=== PATIENT | male | born 1955 | race Caucasian/White ===

== ENCOUNTER 2017-09-02 19:43 | Emergency (ER) | payer MEDICAID ==
[~2017-09-02] VITALS: Ht 167.6 cm; Wt 78.0 kg
[~2017-09-02 19:43] MED LIST: PRED20 PO; VITAD400 PO
[2017-09-02 21:17] LABS: BASOPHILS % (AUTO) 0.4 % (0.0-2.0); EOSINOPHILS % (AUTO) 0.6 % (1.0-6.0); HEMATOCRIT 45.8 % (41-53); HEMOGLOBIN 15.7 g/dL (13.5-17.5); LYMPHOCYTES # (AUTO) 1.4 K/uL (1.0-4.8); LYMPHOCYTES % (AUTO) 12.8 % (22.0-44.0); MEAN CORPUSCULAR HEMOGLOBIN 29.1 pg (26.0-34.0); MEAN CORPUSCULAR HGB CONC 34.3 G/dL (31.0-37.0); MEAN CORPUSCULAR VOLUME 85 fL (80-100); MONOCYTES # (AUTO) 0.6 K/uL (0.1-1.0); NEUTROPHILS # (AUTO) 9.1 K/uL (1.8-7.7); NEUTROPHILS % (AUTO) 81.2 % (40.0-70.0); PLATELET COUNT (AUTO) 228 K/uL (150-450); WHITE BLOOD COUNT (AUTO) 11.2 K/uL (4.5-11.0)
[2017-09-02] MEDS ORDERED: MORPHINE SULFATE 4 MG/ML SYRINGE IVP ONE (21:30)
[2017-09-02] MEDS ORDERED: ONDANSETRON HCL 4 MG/2 ML VIAL IVP ONE (21:30)
[2017-09-02 21:31] LABS: ANION GAP 6 mmol/L (8-16); CALCIUM, TOTAL 9.2 mg/dL (8.8-10.5); CARBON DIOXIDE 29 mmol/L (22-29); CHLORIDE 100 mmol/L (98-107); CREATININE 0.86 mg/dL (0.60-1.30); GLOMERULAR FILTR. RATE CALC > 60 mL/min (>60); SODIUM SERUM 135 mmol/L (136-145); UREA NITROGEN, BLOOD 28 mg/dL (7-18)
[2017-09-02 21:37] LABS: ALANINE AMINOTRANSFERASE 70 U/L (12-78); ALBUMIN 3.8 g/dL (3.4-5.0); ASPARTATE AMINOTRANSFERASE 34 U/L (15-37); BILIRUBIN,TOTAL 0.4 mg/dL (0.1-1.0); TOTAL PROTEIN, SERUM 7.5 g/dL (6.4-8.2)
[2017-09-03 00:27] LABS: APPEARANCE,URINE CLEAR (CLEAR); GLUCOSE, URINE (UA) 100 mg/dL (NEGATIVE); KETONES,URINE NEGATIVE (NEGATIVE); LEUKOCYTE ESTERASE ,URINE SMALL (NEGATIVE); OCCULT BLOOD,URINE NEGATIVE (NEGATIVE); PROTEIN,URINE TRACE (NEGATIVE)
[2017-09-03 00:50] LABS: ADD UA MICROSCOPIC YES
[2017-09-03 01:03] LABS: RBC,URINE 0-2 /HPF (0-2); SQUAMOUS EPITHELIAL CELL,UR Few /LPF (None Seen)
[2017-09-03 03:32] VITALS: BP 139/78
== END 2017-09-03 03:55 | disposition home or self-care (01) ==
LOC: EMS 19:49
DX: R10.13 Epigastric pain (principal)
CPT/HCPCS: 36415; 76700; 80053; 81001; 83690; 84484; 85025; 87077; 87086; 87186; 93005; 96374; 96375; 99285; J2270; J2405

== ENCOUNTER 2021-01-31 16:01 | Emergency (ER) | payer MEDICAID, OTHER ==
[~2021-01-31] VITALS: Ht 165.1 cm; Wt 75.0 kg
[2021-01-31 16:50] VITALS: BP 145/90
[2021-01-31] MEDS ORDERED: HYDROCODONE/ACETAMINOPHEN 5-325 MG TABLET PO ONE (17:15)
== END 2021-01-31 17:33 | disposition home or self-care (01) ==
LOC: EMS 16:14
DX: M54.31 Sciatica, right side (principal)
CPT/HCPCS: 82962; 99283

== ENCOUNTER 2023-04-04 13:12 | Emergency (ER) | payer MEDICARE, OTHER ==
[~2023-04-04] VITALS: Ht 160 cm; Wt 75.5 kg
[2023-04-04 13:22] VITALS: TEMP 98
[2023-04-04] MEDS ORDERED: IBUPROFEN 600 MG TABLET PO ONE (16:45)
[2023-04-04 18:40] VITALS: BP 124/65; PULSE 92; RESP 16
== END 2023-04-04 19:12 | disposition home or self-care (01) ==
LOC: EMS 13:17
DX: S22.32XA Fracture of one rib, left side, initial encounter for closed fracture (principal); S59.902A Unspecified injury of left elbow, initial encounter; S09.90XA Unspecified injury of head, initial encounter; V19.9XXA Pedal cyclist (driver) (passenger) injured in unspecified traffic accident, initial encounter; Y93.89 Activity, other specified; Y92.89 Other specified places as the place of occurrence of the external cause; Y99.8 Other external cause status
CPT/HCPCS: 29105; 71101; 99284